=== PATIENT | female | born 1975 | race Caucasian/White ===

== ENCOUNTER 2020-12-28 14:32 | Emergency (ER) | payer OTHER, SELFPAY ==
[2020-12-28] VITALS (9 sets, daily range): BP systolic 117–133; BP diastolic 62–84; PULSE 65–99; RESP 16–18; TEMP 36.9–37.2; O2SAT 98–100
--- NOTE | ~2020-12-28 | XR_ITS ---
EXAMINATION: XR chest 2V DATE: 12/28/2020 15:00 INDICATION: Dizziness, history of tobacco use TECHNIQUE: PA and lateral views of the chest are obtained. COMPARISON: None available FINDINGS: The lungs are free of acute opacities. There is no pleural effusion or pneumothorax. The ca rdiomediastinal silhouette is normal. The visualized bones and soft tissues are unremarkable. IMPRESSION: 1. No acute cardiopulmonary abnormality. Reviewed, dictated and finalized at location B.
--- NOTE | ~2020-12-28 | CT_ITS ---
EXAMINATION: CTA BRAIN/CAROTID DATE: 12/28/2020 20:06 INDICATION: Ataxia. Dizziness. Head fullness TECHNIQUE: Computed tomographic angiography (CTA) of the head and neck was performed with 100 mL Omni paque-350 intravenous contrast. Multiplanar reconstructions and maximum intensity projection 3D-recon structions of the carotid arteries and of the intracranial arteries were created by the technologist on a separate workstation. Precontrast CT of the head was also obtained. Automated exposure control and iterative reconstruction technique were employed.The dose-length product was 1551.25 mGy-cm. COMPARISON: None. FINDINGS: Carotid arteries: Thoracic aorta is normal in caliber with no dissection. No evident atherosclerotic plaque at the aort ic arch or the great vessels arising from the arch. There is 0% stenosis of the right and left caroti d bulbs relative to normal distal artery lumen diameter (NASCET criteria) with no evident atheroscler otic plaque. The cervical portion of the vertebral arteries are codominant also without appreciable p laque. Mild cervical spondylosis. Cervical soft tissues are unremarkable. Visualized apices of lungs are clear. Head: No acute intracranial hemorrhage, acute infarction or abnormal extra axial fluid collection. Ventricl es are normal and symmetric. No mass/mass effect. The orbits, paranasal sinuses and mastoid air cells are normal. No abnormally enhancing brain lesions. Intracranial arteries There is no hemodynamically significant stenosis in the vertebral, basilar and internal carotid arter ies. Vertebral arteries are codominant. There are no aneurysms identified. Both A1 and P1 segments a re patent. Cerebral arterial arborization appears symmetric. IMPRESSION: 1. 0% stenosis of the left and right carotid bulbs relative to normal distal artery lumen diameter (N ASCET criteria). 2. Normal head CT and brain CT angiogram with no aneurysm or stenosis. Reviewed, dictated and finalized at location A. IMPRESSION: 1. 0% stenosis of the left and right carotid bulbs relative to normal distal ar alden lumen diameter (NASCET criteria). 2. Normal head CT and brain CT angiogram with no aneurysm or stenosis.
--- NOTE | 2020-12-28 14:47 | ECG_ITS ---
Measurements Intervals [place] Rate: 77 P: 35 MS: 119 QRS: 40 QRSD: 95 T: 43 QT: 346 QTc: 392 Interpretive Statements SINUS RHYTHM WITH SHORT MS INTERVAL BORDERLINE ST ABNORMALITY- INFERIOR LEADS BASELINE ARTIFACT- I, II, III, AVL, AVF BORDERLINE ECG Electronically Signed On 12-28-2020 15:39:10 CDT by Mau Fuentes D.O.
[2020-12-28 15:18] LABS: Basophils Percent Auto 0.4 % (0.2-1.2); Hematocrit 32.2 % (37.0-47.0); Hemoglobin 9.4 g/dL (12.0-15.0); Immature Granulocyte Absolute 0.08 K/mm3 (0.00-0.031); Immature Granulocyte Percent A 0.7 % (0-0.5); Lymphocytes Percent Auto 9.6 % (18.3-44.2); Mean Corpuscular HGB Conc 29.2 g/dl (32-36); Mean Corpuscular Hemoglobin 21.3 pg (26-34); Mean Corpuscular Volume 72.9 fl (80-100); Mean Platelet Volume 10.8 fl (7.4-10.4); Monocytes Absolute Auto 0.4 K/mm3 (0.1-0.6); Monocytes Percent Auto 3.5 % (2.6-8.5); Neutrophils Absolute Auto 9.8 K/mm3 (1.3-6.7); Neutrophils Percent Auto 85.8 % (45.5-73.1); Platelet Count Result 416 k/mm3 (150-375); Red Blood Count 4.42 M/mm3 (4.2-5.4); Red Cell Distribution Width 17.2 % (11.5-14.5); White Blood Count 11.4 K/mm3 (4.5-10.0)
[2020-12-28 15:30] LABS: Alanine Aminotransferase 15 U/L (4-35); Albumin Level 4.5 g/dL (3.5-5.1); Alkaline Phosphatase 59 U/L (38-126); Anion Gap 8 mmol/L (8-16); Aspartate Amino Transferase 19 U/L (14-36); Bilirubin,Total 0.5 mg/dL (0.2-1.3); Blood Urea Nitrogen 9 mg/dL (7-17); Calcium 9.8 mg/dL (8.4-10.2); Carbon Dioxide 27 mmol/L (22-30); Chloride 104 mmol/L (98-107); Estimated CRCL calculation 72 ml/min; Estimated Glomerular Filt Rate > 60; Glucose 123 mg/dL (65-110); Potassium 4.3 mmol/L (3.4-5.0); Sodium 139 mmol/L (137-145)
[2020-12-28 15:35] LABS: Add Urine Microscopic? YES; Appearance Urine Clear (Clear); Bilirubin Urine Negative (Negative); Blood Urine Negative (Negative); Color Urine Straw (Yellow); Glucose Urine UA Negative (Negative); Ketones Urine Negative (Negative); Leukocyte Esterase Ur Trace LEU/UL (Negative); Nitrate Urine Negative (Negative); Protein Urine Negative (Negative); RBC Urine 0-2 /hpf (0-2); Specific Grav Ur 1.012 (1.001-1.035); Urobilinogen Urine Negative mg/dL (<2.0); WBC Urine 0-3 /hpf
--- NOTE | 2020-12-28 19:50 | ED.DIZZY ---
HPI - Dizziness General Chief Complaint: Dizziness Stated Complaint: head full & unsteady Time Seen by Provider: 12/28/20 19:05 Source: patient and RN notes reviewed Mode of arrival: ambulatory Limitations: no limitations History of Present Illness HPI Narrative: Patient is 45 years old white female drove herself to the emergency room, complaining of lightheadedness for the last 7 days. With pressure feeling behind the eyes over the last 24 hours. Patient report the lightheadedness get better with activity and because probably she does not sit. Get worse if she is sitting or at rest she plays too much attention.. Patient reports a lot of stress lately, was seen at urgent care few days ago and was started on meclizine and prednisone without any improvement. Patient is not vaccinated for COVID-19, denies any fever, chills, nausea, vomiting, shortness of breath, chest pain, focal neuro deficits. Patient still me that her mom had history of cerebral aneurysm and her dad had history of aortic aneurysm. Related Data Allergies Allergy/AdvReac Type Severity Reaction Status Date / Time Penicillins Allergy Mild HIVES Unverified 10/01/12 15:17 Review of Systems Review of Systems: CONSTITUTIONAL: Denies fever, chills, or sweats. EYES: Denies visual changes, redness, or discharge. ENT: Denies rhinorrhea, congestion, sore throat, or otalgia. CARDIOVASCULAR: Denies chest pain, palpitations, or edema. RESPIRATORY: Denies cough or dyspnea. GASTROINTESTINAL: Denies abdominal pain, nausea, vomiting, or diarrhea. GENITOURINARY: Denies dysuria or hematuria. SKIN: Denies rash or itching. MUSCULOSKELETAL: Denies back pain, joint pain, or myalgia. NEUROLOGIC: Denies headache, numbness, or weakness. PSYCHIATRIC: Denies anxiety or depression. Exam Narrative: General appearance: Well-developed, well-nourished, restless Skin: Normal color Head: Normocephalic, nontraumatic Eyes: Clear conjunctiva ENT: Oropharynx normal, ears normal, nose normal Neck: Supple, nontender Chest and respiratory: Airway patent, no respiratory distress, no accessory muscle use Heart: Regular rate/rhythm Abdomen: Soft, nontender, no organomegaly, quiet bowel sounds Vascular: Normal peripheral pulses, normal capillary refill. Musculoskeletal: Normal range of motion, nontender back Neurologic: Alert and oriented ?3, [employer] is normal as tested, no gross motor deficit Course Course Emergency Course: Stable Vital Signs Vital signs: Vital Signs Temperature 37.2 C 12/28/20 14:44 Pulse Rate 80 12/28/20 14:44 Respiratory Rate 18 12/28/20 14:44 Blood Pressure 128/83 12/28/20 14:44 Pulse Oximetry 100 12/28/20 14:44 Temperature 36.9 C 12/28/20 19:00 Pulse Rate 99 12/28/20 23:00 Respiratory Rate 16 12/28/20 23:00 Blood Pressure 124/79 12/28/20 23:00 Pulse Oximetry 99 12/28/20 23:00 MDM - Dizziness MDM Narrative Medical decision making narrative: Patient presents with lightheadedness, mother had history of cerebral aneurysm, CT head without contrast, CTA head and neck ordered. Labs, UA ordered. Further plan to follow. Look at my differential diagnosis below Differential Diagnosis Differential diagnosis: Likely vertebral basilar insufficiency, cerebrovascular accident and other (Anxiety related symptoms) Lab Data Result diagrams: 12/28/20 15:11 12/28/20 15:11 Labs: Lab Results 12/28/20 12/28/20 12/28/20 Range/Units 15:11 15:11 15:21 WBC 11.4 H (4.5-10.0) K/mm3 RBC 4.42 (4.2-5.4) M/mm3 Hgb 9.4 L (12.0-15.0) g/dL Hct 32.2 L (37.0-47.0) % MCV 72.9 L (80-100) fl MCH 21.3 L (26-34) pg MCHC 29.2 L (32-
== END 2020-12-28 23:44 | disposition home or self-care (01) ==
PROVIDERS: Emergency Medicine; Emergency Provider Emergency Medicine
DX: R42 Dizziness and giddiness (principal); R94.31 Abnormal electrocardiogram [ECG] [EKG]
CPT/HCPCS: 36415; 70496; 70498; 71046; 80053; 81001; 85025; 93005; 99284; Q9967